=== PATIENT | female | born 1970 | race Caucasian/White ===

== ENCOUNTER 2018-05-30 23:41 | Emergency (ER) | payer MEDICAID ==
[2018-05-31] MEDS ORDERED: diphenhydrAMINE 25 MG Cap PO ONE (00:01)
--- NOTE | 2018-05-31 00:04 | EDM.PDOC ---
ED HPI GENERAL MEDICAL PROBLEM - General Chief Complaint: Allergic Reaction Stated Complaint: REACTION TO ORANGES Time Seen by Provider: 05/31/18 00:02 Source of Information: Reports: Patient History Limitations: Reports: No Limitations - History of Present Illness INITIAL COMMENTS - FREE TEXT/NARRATIVE: pt is allergic to orange juice and she had some etoh drinks tonight with orange juice in them. She became quite sob for a short period of time. She is now better. Onset: Today, Sudden Duration: Hour(s): Location: Reports: Chest Associated Symptoms: Reports: Cough, Shortness of Breath - Related Data Allergies Allergy/AdvReac Type Severity Reaction Status Date / Time acetaminophen Allergy Lightheaded Verified 05/30/18 23:50 ness codeine Allergy Rash Verified 05/30/18 23:50 grapefruit Allergy Difficulty Verified 05/30/18 23:53 Breathing orange Allergy Difficulty Verified 05/30/18 23:53 Breathing Penicillins Allergy Rash Verified 05/30/18 23:50 Sulfa (Sulfonamide Allergy Rash Verified 05/30/18 23:50 Antibiotics) terfenadine [From Seldane] Allergy Rash Verified 05/30/18 23:50 Home Meds: Home Meds Mometasone Furoate [Nasonex] 1 dose INH DAILY 05/30/18 [History] NK [No Known Home Meds] 05/30/18 [History] Past Medical History HEENT History: Reports: Allergic Rhinitis Musculoskeletal History: Reports: Fracture Social & Family History - Family History Family Medical History: Noncontributory - Tobacco Use Smoking Status *Q: Never Smoker - Caffeine Use Caffeine Use: Reports: Soda, Tea - Recreational Drug Use Recreational Drug Use: No ED ROS ALLERGIC REACTION - Review of Systems Review Of Systems: See Below Constitutional: Reports: No Symptoms HEENT: Reports: No Symptoms Respiratory: Reports: Shortness of Breath, Other (pt is allergic to orange juice and she drank some drinks with orange juice. ) Cardiovascular: Reports: No Symptoms Endocrine: Reports: No Symptoms GI/Abdominal: Reports: No Symptoms : Reports: No Symptoms Musculoskeletal: Reports: No Symptoms Skin: Reports: No Symptoms ED EXAM GENERAL NO PERIP PULSE - Physical Exam Exam: See Below Text/Narrative:: pt became sob after drinking some etoh drinks with orange juice and she is allergic to orange uice. Exam Limited By: No Limitations General Appearance: Alert, Other (pt had a episode of sob. ) Ears: Normal TMs Nose: Normal Inspection Throat/Mouth: Normal Inspection Head: Atraumatic Neck: Normal Inspection Respiratory/Chest: No Respiratory Distress, Other ( chest sounds clear with no wheezing present.) Cardiovascular: Regular Rate, Rhythm GI/Abdominal: Soft, Non-Tender (Female) Exam: Deferred Rectal (Female) Exam: Deferred Back Exam: Normal Inspection Extremities: Normal Inspection Neurological: Alert, Oriented, Normal Cognition Psychiatric: Normal Affect Course - Vital Signs Last Recorded V/S: Last Vital Signs Temp 35.1 C L 05/31/18 00:13 Pulse 100 05/31/18 00:38 Resp 16 05/31/18 00:38 BP 108/80 05/31/18 00:38 Pulse Ox 96 05/31/18 00:38 - Orders/Labs/Meds Labs: Laboratory Tests 05/31/18 05/31/18 05/31/18 Range/Units 00:05 00:05 00:05 WBC 9.2 (4.5-11.0) K/uL RBC 4.30 (3.30-5.50) M/uL Hgb 13.9 (12.0-15.0) g/dL Hct 40.1 (36.0-48.0) % MCV 93 (80-98) fL MCH 32 H (27-31) pg MCHC 35 (32-36) % Plt Count 413 H (150-400) K/uL Neut % (Auto) 56 (36-66) % Lymph % (Auto) 32 (24-44) % Stark % (Auto) 8 H (2-6) % Eos % (Auto) 3 (2-4) % Baso % (Auto) 1 (0-1) % Sodium 138 L (140-148) mmol/L Potassium 3.9 (3.6-5.2) mmol/L Chloride 103 (100-108) mmol/L Carbon Dioxide 25 (21-32) mmol/L Anion Gap 13.9 (5.0-14.0) mmol/L BUN 14 (7-18) mg/dL Creatinine 0.6 (0.6-1.0) mg/dL Est Cr Clr Drug Dosing 88.41 mL/min Estimated GFR (MDRD) > 60 (>60) Glucose 125 H (74-106) mg/dL Calcium 8.9 (8.5-10.1) mg/dL Ethyl Alcohol 128 mg/dL Meds: Medications Discontinued Medications Generic Name Dose Route Start Last Admin Trade Name Ismael PRN Reason Stop Dose Admin Diphenhydramine HCl 25 mg 05/31/18 00:01 05/31/18 00:12 Benadryl PO 05/31/18 00:02 25 mg ONETIME ONE Administration - Re-Assessments/Exams Free Text/Narrative Re-Assessment/Exam: 05/31/18 00:49 pt arrived with a episode of sob She was somewhat better by the time we did get her back in a room. Her vitals were good. The pt had been drinking a fair amoune. Departure - Departure Time of Disposition: 00:50 Disposition: Home, Self-Care 01 Condition: Fair Clinical Impression: Minor allergic reaction, Intoxication - Discharge Information Referrals: PCP,None [Primary Care Provider] - Forms: ED Department Discharge Care Plan Goals: use another benadry 25 mg when she gets home.
== END 2018-05-31 01:01 | disposition home or self-care (01) ==
LOC: JP.ED 23:41
DX: T78.1XXA Other adverse food reactions, not elsewhere classified, initial encounter (principal); R06.02 Shortness of breath; F10.129 Alcohol abuse with intoxication, unspecified; Y90.6 Blood alcohol level of 120-199 mg/100 ml; Z79.899 Other long term (current) drug therapy; Z91.018 Allergy to other foods; Z88.6 Allergy status to analgesic agent; Z88.5 Allergy status to narcotic agent; Z88.0 Allergy status to penicillin; Z88.2 Allergy status to sulfonamides; Z88.8 Allergy status to other drugs, medicaments and biological substances
CPT/HCPCS: 36415; 80048; 85025; 99284; A9270; G0480